=== PATIENT | male | born 1985 | race Caucasian/White ===

== ENCOUNTER 2021-05-07 14:37 | Emergency (ER) | payer BC, SELFPAY ==
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
[2021-05-07 14:46] VITALS: BP 146/90; PULSE 114; RESP 18; TEMP 36.6; O2SAT 97
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
== END 2021-05-07 17:24 | disposition home or self-care (01) ==
PROVIDERS: Emergency Provider Physician Assistant
DX: S09.8XXA Other specified injuries of head, initial encounter (principal); S00.81XA Abrasion of other part of head, initial encounter; M54.2 Cervicalgia; V18.0XXA Pedal cycle driver injured in noncollision transport accident in nontraffic accident, initial encounter; W22.8XXA Striking against or struck by other objects, initial encounter; Y93.55 Activity, bike riding
CPT/HCPCS: 90471; 99284; 70450; 72125